=== PATIENT | male | born 1975 | race African-American/Black ===

== ENCOUNTER → 2017-03-10 | Outpatient (CLI) | payer OTHER ==
[~2017-03-10] MED LIST: OPTIRAY 320 IV PRN
--- NOTE | 2017-03-10 13:36 | DIAGNOSTIC IMAGING REPORT ---
CT ANGIO ABDOMEN WITH CONTRAST CT DOSE: 867.62 mGy.cm CLINICAL HISTORY: Refractory hypertension. TECHNIQUE: Helical images were acquired in the transverse plane. MIP imaging was performed. The patient was scanned in the arterial phase. COMPARISON STUDY: None. FINDINGS: The visualized portions lung bases reveal a slight mosaic attenuation pattern of the lung bases possibly secondary to air-trapping. No hepatic masses are visualized on this arterial phase study. The gallbladder appears normal. There is splenic masses are visualized. No pancreatic masses are visualized. There is mild left adrenal thickening. No renal masses are visualized this arterial phase study. There is a fat-containing umbilical hernia. There is no evidence of superior mesenteric artery stenosis. There is no evidence of celiac artery stenosis. There are single bilateral renal arteries. There is no evidence of renal artery stenosis. There is no evidence of aortic or proximal iliac artery stenosis. IMPRESSION: No evidence of renal, superior mesenteric, or celiac artery stenosis. Electronically signed by: Amado Dan M.D. 03/10/2017 1:34 PM Dictated Date/Time: 03/10/2017 1:31 PM
== END | disposition home or self-care (01) ==
LOC: C.CTS 12:55 → EDSEX 13:00
PROVIDERS: ATTEND Nurse Practitioner Family
DX: I10 Essential (primary) hypertension (principal)

== ENCOUNTER → 2017-06-05 | Outpatient (CLI) | payer OTHER ==
[~2017-06-05] VITALS: Ht 182.9 cm; Wt 133.9 kg
[2017-06-05 14:47] VITALS: BP 147/96; PULSE 81; Ht 182.9 cm; Wt 133.9 kg
== END | disposition home or self-care (01) ==
LOC: C.NEUR 14:10
PROVIDERS: ATTEND Internal Medicine Pulmonary Disease
DX: R53.83 Other fatigue (principal); I10 Essential (primary) hypertension; E66.9 Obesity, unspecified; G47.00 Insomnia, unspecified; G47.21 Circadian rhythm sleep disorder, delayed sleep phase type

== ENCOUNTER → 2017-06-16 | Outpatient (CLI) | payer OTHER ==
--- NOTE | 2017-06-21 12:03 | POLYSOMNOGRAPH REPORT ---
CLINICAL DATA: The patient is a 42-year-old male with a BMI of 40, referred with a history of hypertension, obesity, daytime fatigue, fragmented sleep, and loud snoring. On the evening of 06/16/2017, a home sleep apnea test was performed using [employer] type 3 monitor. RECORDING RESULTS: Total recording time was 8.9 hours. The patient's monitoring time and estimated sleep time was 6.5 hours. RESPIRATORY DATA: Mild sleep apnea was documented. The JOVANY was 14.9. There were 36 obstructive apneic episodes and 60 hypopneic episodes. The longest respiratory event was 58 seconds. OXIMETRY DATA: Transient nocturnal hypoxemia was seen. Oxygen zeinab was 83%. Mean saturation was 95%. Time below 89% was 2 minutes. HEART RATE DATA: Heart rates ranged from 59-72 beats per minute. SNORING DATA: Snoring was recorded throughout the night. IMPRESSION: Mild sleep apnea/hypopnea with an JOVANY of 14.9 with mild nocturnal hypoxemia. RECOMMENDATIONS: The patient may benefit from use of an oral appliance or a repeat sleep study with CPAP. Clinical correlation is needed.
== END | disposition home or self-care (01) ==
LOC: C.NEUR 10:10
PROVIDERS: ATTEND Internal Medicine Pulmonary Disease
DX: G47.21 Circadian rhythm sleep disorder, delayed sleep phase type (principal)

== ENCOUNTER 2018-04-03 10:08 | Emergency (ER) | payer OTHER ==
[~2018-04-03] VITALS: Ht 182.9 cm; Wt 141.2 kg
[2018-04-03 10:15] VITALS: TEMP 36.8; Ht 182.9 cm; Wt 141.2 kg
[2018-04-03] MEDS ORDERED: LISI-729 PO (10:32)
[2018-04-03] MEDS ORDERED: HYDR12.56 PO (10:32)
[2018-04-03] MEDS ORDERED: BLOOD PRESURE MED PO (10:32)
[2018-04-03] MEDS ORDERED: LISINOPRIL 20 MG TAB PO STA (10:43)
[2018-04-03] MEDS ORDERED: HYDROCHLOROTHIAZIDE 25 MG TAB PO STA (10:43)
[2018-04-03] MEDS ORDERED: AMLODIPINE BESYLATE 5 MG TAB PO ONE (10:45)
--- NOTE | 2018-04-03 10:49 | EMERGENCY ROOM VISIT NOTE ---
History Report prepared by Annalisa: Inocencio Arguelles Under the Supervision of: Dr. Festus Pike M.D. First contact with patient: 10:37 Chief Complaint: NOSE BLEED (MINOR) Stated Complaint: NOSE BLEED History of Present Illness The patient is a 43 year old male who presents to the Emergency Room with complaints of an intermittent nose bleed beginning 8.5 hours ago. The patient states his bleeding began at 0200 this morning, stopped, and then started again. He notes he thought blood was coming from both nostrils the first time and just the left nostril the second time. He reports he does not take aspirin or a blood thinner. The patient notes he does take lisinopril and hydrochlorothiazide. He states he did not take them this morning because he woke up and came straight to the ED. The patient denies fevers, chills, cough, congestion, nausea, vomiting, diarrhea, feeling blood dripping down his throat, and abdominal pain. Source of History: patient Onset: 8.5 hours ago Position: nose Quality: other (bleed) Timing: intermittent Associated Symptoms: No fevers, No chills, No cough, No nausea, No vomiting , No abdominal pain, No diarrhea Note: Denies: congestion Review of Systems See HPI for pertinent positives and negatives. A total of ten systems were reviewed and were otherwise negative. Past Medical & Surgical Medical Problems: (1) HTN (hypertension) Family History Patient reports no known family medical history. Social History Smoking Status: Never Smoker Marital Status: single Occupation Status: employed Current/Historical Medications Scheduled Hydrochlorothiazide (Hctz), Unknown Dose PO DAILY Lisinopril (Zestril), Unknown Dose PO DAILY [Blood Presure Med], 1 TAB PO DAILY Allergies Coded Allergies: No Known Allergies (Unverified , 04/03/18) Physical Exam Vital Signs Date Time Temp Pulse Resp B/P (MAP) Pulse Ox O2 Delivery O2 Flow Rate FiO2 04/03/18 12:50 81 18 205/149 97 04/03/18 12:22 205/149 04/03/18 12:01 81 18 201/148 97 Room Air 04/03/18 10:15 36.8 93 20 212/148 98 Room Air Physical Exam GENERAL: Awake, alert, well-appearing, in no distress HENT: Normocephalic, atraumatic. Oropharynx unremarkable. No blood in the oropharynx. Scant dry blood in the bilateral nares. No clear source. EYES: Normal conjunctiva. Sclera non-icteric. NECK: Supple. No nuchal rigidity. FROM. No JVD. RESPIRATORY: Clear to auscultation. CARDIAC: Regular rate, normal rhythm. Extremities warm and well perfused. Pulses equal. ABDOMEN: Soft, non-distended. No tenderness to palpation. No rebound or guarding. No masses. RECTAL: Deferred. MUSCULOSKELETAL: Chest examination reveals no tenderness. The back is symmetrical on inspection without obvious abnormality. There is no CVA tenderness to palpation. No joint edema. LOWER EXTREMITIES: Calves are equal size bilaterally and non-tender. No edema. No discoloration. NEURO: Normal sensorium. No sensory or motor deficits noted. SKIN: No rash or jaundice noted. Medical Decision & Procedures Medications Administered Medications (Trade) Dose Ordered Sig/Capri Route Start Time Stop Time Status Last Admin Dose Admin Lisinopril (Zestril Tab) 20 mg NOW STAT PO 04/03/18 10:43 04/03/18 10:51 DC 04/03/18 11:08 20 MG Hydrochlorothiazide (Hydrochlorothiazide Tab) 25 mg NOW STAT PO 04/03/18 10:43 04/03/18 10:51 DC 04/03/18 11:07 25 MG Amlodipine Besylate (Norvasc Tab) 10 mg NOW ONCE PO 04/03/18 10:45 04/03/18 10:51 DC 04/03/18 11:07 10 MG Oxymetazoline HCl (Afrin 0.05% Nasal [place]) 75 sprays [facility] ONCE .ROUTE 04/03/18 11:04 04/03/18 11:05 DC 04/03/18 11:08 75 SPRAYS ED Course 1040: The patient was evaluated in room B10. A complete history and physical exam was performed. 1144: I reevaluated the patient. His nose has not bled. He is feeling better. 1234: I reevaluated the patient. His blood pressure was still elevated, and he admitted to not taking his medication yesterday as well. Discussed results and discharge instructions: he verbalized understanding and agreement. The patient is ready for discharge. Medical Decision I reviewed the patient's past medical history, medications, and the nursing notes as described above. Differential diagnosis: Etiologies such as anterior epistaxis, coagulopathy, traumatic injury, fracture , septal hematoma, posterior epistaxis as well as other pathologies were entertained. The patient is a 43-year-old gentleman with a past medical history of hypertension who presents emergency department with epistaxis that began today per hpi. Denies LAGOS, dizziness, CP, SOB, n/v. On arrival with the patient's epistaxis is resolved without intervention. The patient was given Afrin and clamp and upon reevaluation continued to be resolved. Of note the patient did arrive hypertensive but reports that he did not take his medicine yesterday or this morning. He was given his home medications of hydrochlorothiazide, lisinopril, amlodipine. Patient continued to be asymptomatic with no further bleeding in the emergency department. Plan for PCP follow-up for further monitoring and management of his hypertension. Findings and plan for follow-up reviewed with patient. Patient agreeable and d/c'd per discharge instructions. Medication Reconcilliation Current Medication List: was personally reviewed by me Blood Pressure Screening Patient's blood pressure: Elevated blood pressure Blood pressure disposition: Referred to PCP Impression Primary Impression: Epistaxis Additional Impression: Hypertension Scribe Attestation The scribe's documentation has been prepared under my direction and personally reviewed by me in its entirety. I confirm that the note above accurately reflects all work, treatment, procedures, and medical decision making performed by me. Departure Information Dispostion Home / Self-Care Referrals Haylie Blake (PCP) Forms HOME CARE DOCUMENTATION FORM, IMPORTANT VISIT INFORMATION, WORK / SCHOOL INSTRUCTIONS Patient Instructions ED Nosebleed, High Blood Pressure, My [facility] Additional Instructions Please follow up with your primary care physician on Thursday for re-evaluation in to discuss improved control of your blood pressure. Your nosebleed resolved in the emergency department. Otherwise, your exam did not show signs of an emergent condition at this time. Make sure to take your blood pressures daily as prescribed. Apply Afrin for recurrent nosebleeds with direct pressure for approximately 30- 60 minutes. Return to the emergency department for worsening symptoms as described in the accompanying instructions. Problem Qualifiers
[2018-04-03] MEDS ORDERED: LISINOPRIL 5 MG TAB ONE (11:03)
[2018-04-03] MEDS ORDERED: OXYMETAZOLINE HCL 0.05% NA SPR 15 ML BTL ONE (11:04)
[2018-04-03 12:50] VITALS: BP 205/149; PULSE 81; O2SAT 97
== END 2018-04-03 12:51 | disposition home or self-care (01) ==
LOC: C.EDB 10:09
DX: R04.0 Epistaxis (principal); I10 Essential (primary) hypertension; Z79.899 Other long term (current) drug therapy

== ENCOUNTER → 2018-06-22 | Outpatient (CLI) | payer OTHER ==
[~2018-06-22] MED LIST changes: +BLOOD PRESURE MED PO; +HYDR12.56 PO; +LISI-729 PO; -OPTIRAY 320 IV PRN
--- NOTE | 2018-06-23 06:37 | PAP/PSG TECHNICIAN REPORT ---
[facility] Senior Functional Analyst Polysomnogram Report Study name: None Report date: 06/23/2018 Study date: 06/22/2018 Referring Physician: Tyron Ayala M.D. Name: EVERARDO PIERCE Interpreting Physician: Tyron Ayala M.D. Date of : 1975 Senior Functional Analyst: Nevin Mccartney RPSGT. Sex: Male Age: 43 Study Type: PSG PAP Weight: 295 lbs Height: 43 years, Height 6' 0" BMI: 40 Medications: ASCORBIC ACID 500 MG, ATORVASTATIN 40 MG, FERROUS SULFATE 325 MG, SILDENAFIL 100 MG Patient History 43 yr-old male here for a new CPAP treatment study. He was found to be positive for POLINA with an AHI of 14.9. His diagnostic home sleep study was on 06/16/17. He chose a Mirage FX Soft edge nasal mask size wide from [employer]. The test was started on room air and 4 CMH2O. ETCO2 testing was not utilized during this study. Room 3 Parameters Monitored NPSG: E1-M2, E2-M1, Fp1-M2, Fp2-M1, F3-M2, F4-M2, F4-M1, C3-M2, C4-M2, C4-M1, O1-M2, O2-M2, O2-M1, T3-M2, T4-M1, P3-M2, P4-M1, CHIN1, CHIN2, HR, EKG, Legs, PFLOW, SNOR, FLOW, CFLOW, Tidal Volume, THOR, ABDO, SpO2, PLTH, CPRESS, ETCO2 Wave, ETCO2, pH Sleep Architecture Sleep Stages Time at Lights Off 11:10:20 PM STAGES Time (min.) TST (%) Time at Lights On 5:29:50 AM Wake 129.0 -- Total Recording Time (TRT) 379.50 min. N1 31.5 13 Total Sleep Period (TSP) 365.0 min. N2 204.0 81 Total Sleep Time (TST) 250.5min. N3 0.0 0 Awake Time 129.0 min. REM 15.0 6 Wake after Sleep Onset 114.5 min. Sleep Efficiency (SE) 66 % Sleep Onset Latency (HAL) 14.5 min. Number of Stage 1 Shifts None Awakenings 18 Stage Changes 79 Number of REM periods 1 REM 15.0 6 REM Latency 265.0 min. NREM 235.5 94 Body Position Analysis Supine Right Left Side Prone Vertical Total Sleep Time (min.) 292.7 44.8 0.0 44.77 0.0 0.0 Total Sleep Time (%) 82% 18% 0% 18 0% N/A% Total Sleep Time REM (min.) 15.0 0.0 0.0 None 0.0 0.0 Total Sleep Time NREM (min.) 190.7 44.8 0.0 None 0.0 0.0 Intermittent Wake (min.) 87.0 42.0 0.0 None 0.0 0.0 Total Sleep Period (%) 78% None None None None None Arousals Myoclonus (PLM) * Events Count Index Events Count Index Spontaneous 57 14 Events Awake (PLMW) 179 83.3 Respiratory 6 1.4 Events Asleep w/ Arousal (PLMA) 17 4.1 PLM 17 4 Events Asleep w/o Arousal (PLMS) 99 23.7 Snoring 5 1 Total Asleep 116 27.8 Total 84 20 Total 295 47 Respiratory Analysis * CA OA MA CH H RERA Total Count 0 0 0 0 12 5 12 Index 0.0 0.0 0.0 0 2.9 1 4.1 Mean Duration 0.0 0.0 0.0 0.00 14.7 18.8 15.9 Longest Duration 0.0 0.0 0.0 0.00 0.0 21.3 21.3 Respiratory Event Summary Total Supine ~Supine Right Left Prone REM NREM Apneas Count 0 0 0 0 N/A N/A 0 0 Index 0.0 0 0 0.0 N/A N/A 0 0 Hypopneas (4% Desat) Count 12 12 0 0 N/A N/A 4 8 Index 2.9 3.5 0 0.0 N/A N/A 16.0 2.0 Apneas & All Hypopneas Count 12 12 0 0 N/A N/A 4 8 Index 2.9 3 0 0 N/A N/A 16.0 2.0 Respiratory Events (Facilities Operations Technician+All Hyp+RERA) Count 12 16 1 1 N/A N/A 4 8 Index 4.1 5 1 1.3 N/A N/A 24.0 2.8 Respiratory Related Arousal Count 6 16 1 1 N/A N/A 3 3 Index 1.4 1 1 1 N/A N/A 12 1 Snoring Analysis Supine Right Left Prone REM NREM Total Snore duration 12.0 min Snores count 681 110 N/A N/A 12 779 791 Snore mean duration 0.9 Sec Snores index 199 147 N/A N/A 48.0 198.5 189.5 TST with snoring (%) 4.8% Desaturation Event Summary: Minimum %SpO2 Event Count Mean/Min/Max Duration(sec.) Desaturation Index % Time In Bed > 90 20 31.5 / 8.3 / 60.0 9.8 33.0 86 - 90 15 28.9 / 8.3 / 60.0 4.0 60.1 81 - 85 0 N/A 0.0 6.8 76 - 80 0 N/A 0.0 0.1 71 - 75 0 N/A 0.0 0.0 66 - 70 0 N/A 0.0 0.0 61 - 65 0 N/A 0.0 0.0 56 - 60 0 N/A 0.0 0.0 51 - 55 0 N/A 0.0 0.0 < 50 0 N/A 0.0 0.0 Total REM NREM Awake <50% 0.0 min. 0.0 min. 0.0 min. 0.0 min. 51 - 60% 0.0 min. 0.0 min. 0.0 min. 0.0 min. 61 - 70% 0.0 min. 0.0 min. 0.0 min. 0.0 min. 71 - 80% 0.4 min. 0.4 min. 0.0 min. 0.0 min. 81 - 90% 247.5 min. 14.4 min. 184.2 min. 48.9 min. 91 - 100% 122.0 min. 0.2 min. 50.7 min. 71.1 min. Average 89 86 89 91 Minimum SpO2 79 79 83 83 Desaturation Event Index 4.4 16.0 3.8 4.2 # Desat. Events below 89% 19 4 8 7 Time(%) with Saturation below 89% 33.2 3.5 24.5 5.3 Time(min.) with Saturation below 89% 123.0 13.0 90.5 19.5 Time (mins) REM (mins) NREM (mins) % of TST SpO2 Below 90% 19 4 N15 57.3 SpO2 Below 88% 6 0 0 28 Heart Rate Analysis Min (bpm) Max (bpm) Average (bpm) Awake 78 196 91 NREM 43 106 85 REM 76 97 87 Overall 43 106 85 Supplemental O2 Values Minimum O2 level: None Value Start Time End Time Senior Functional Analyst Comments Mr. Pierce slept in the right and supine positions. Whenever he was supine; however, he slept leaning up against the headboard (except for the last part of the study when he did actually lie flat. No cardiac arrhythmias or PLMs noted. No bruxism noted. CPAP was initiated at +4 CMH2O and up-titrated to a level of +8 CMH2O, Cflex 2 which nearly eliminated all respiratory events and snoring. A Mirage FX Soft edge nasal mask size wide from [employer] was used during titration. He awoke to use the restroom five times during the night. He seemed to be apprehensive about the mask. He would sit up in bed several times and swing over to the side. He would then lay back down and get back to sleep. Upon further review, every time he would sit up he would urinate in whatever he found closest to him without ringing the call serrano (i.e. the trash can and a plastic cup). Once his actions were identified, a urinal was taken in for him. It was unclear whether or not he could not make it to the restroom in time. Mr. Pierce stated that he slept about the same as usual. The final report will be interpreted and signed by a sleep physician. The completed physician report will then be placed in the patient medical record. CPAP REPORT Therapy Detail Time / Page # Comment CPAP 4 cm H2O Full Face Mask Flex Pressure Relief Humidifier on 11:08:22 PM / pg. 270 CPAP 5 cm H2O Full Face Mask Flex Pressure Relief Humidifier on 2:07:01 AM / pg. 627 INCREASED FOR SNORING CPAP 6 cm H2O Full Face Mask Flex Pressure Relief Humidifier on 4:01:39 AM / pg. 856 INCREASED FOR HYPOPNEAS IN REM CPAP 8 cm H2O Full Face Mask Flex Pressure Relief Humidifier on 4:53:33 AM / pg. 960 INCREASED FOR LOUD SNORING AND HYPOPNEAS WHILE FINALLY FLAT AND SUPINE Therapy Event: Therapy (cm H20) 4 5 6 8 Total Time at Pressure (min.) 176.7 114.6 51.9 36.3 TST at Pressure (min.) 73.7 91.6 49.9 35.3 # Periods 1 1 1 1 Sleep Onset (min.) 14.5 0.0 0.0 0.0 REM Onset (min.) N/A 102.8 0.0 N/A Sleep Efficiency % 41 79 96 97 Wakefulness (%) 58.3 20.1 3.9 2.8 Wakefulness (min.) 103.0 23.0 2.0 1.0 NREM 1 (%) 10.8 7.4 7.7 0.0 NREM 1 (min.) 19.0 8.5 4.0 0.0 NREM 2 (%) 30.9 62.2 82.3 97.2 NREM 2 (min.) 54.7 71.3 42.7 35.3 NREM 3 (%) 0.0 0.0 0.0 0.0 NREM 3 (min.) 0.0 0.0 0.0 0.0 REM (%) 0.0 10.3 6.1 0.0 REM (min.) 0.0 11.8 3.2 0.0 # Arousals 42 33 6 3 Arousal Index 34.2 21.6 7.2 5.1 # Snore 27 109 77 578 Snore Index 22.0 71.4 92.6 983.0 AHI 0.0 2.6 2.4 10.2 AHI Supine 0.0 3.5 2.4 10.2 AHI Non-Supine 0.0 0.0 N/A N/A NREM AHI 0.0 0.8 1.3 10.2 REM AHI N/A 15.2 18.9 N/A RDI 1.6 4.6 2.4 10.2 # Obstructive 0 0 0 0 # Central Ap 0 0 0 0 # Mixed 0 0 0 0 # Hypopneas 0 4 2 6 RERAS 2 3 0 0 Total Respiratory Events 2 7 2 6 Time Below SpO2 89.00% (min.) 56.9 38.1 5.1 3.4 Mean NREM SpO2 (%) 87 89 90 90 Mean REM SpO2 (%) N/A 86 86 N/A Mean Sleep SpO2 (%) 87 89 90 90 Min NREM SpO2 (%) 83 86 84 87 Min REM SpO2 (%) N/A 79 82 N/A Position Supine (min.) 51.7 68.8 49.9 35.3 Position Non-supine (min.) 21.9 22.8 0.0 0.0 LM Index Sleep 54.6 28.2 6.0 1.7 LM Index NREM 54.6 28.6 2.6 1.7 LM Index REM N/A 25.4 56.6 N/A Mean Heart Rate (bpm) 84 84 86 87 Min Heart Rate (bpm) 77 43 80 82
--- NOTE | 2018-06-28 08:19 | POLYSOMNOGRAPH REPORT ---
CLINICAL DATA: A 43-year-old male with BMI of 40 referred by Perla Barnard and myself with a history of mild sleep apnea with an AHI of 14 with an JOVANY of 14.9 on a home sleep apnea test. He used a Mirage FX soft edge nasal mask size wide from [employer]. SLEEP ARCHITECTURE: Total sleep period was 365 minutes. Total sleep time was 250.5 minutes divided between 235.5 minutes of non-REM sleep and 15 minutes of REM sleep. Sleep latency was 14.5 minutes. REM latency was delayed at 265 minutes. Sleep efficiency was reduced at 66%. Wake after sleep onset was elevated at 114.5 minutes. Sleep consisted of stage N1 13%, stage N2 81%, and REM 6%. AROUSAL DATA: 84 arousals were recorded for an index of 20 per hour. PLM DATA: 116 limb movements during sleep were noted for an index of 27.8 per hour with arousal index of 4.1 per hour. RESPIRATORY DATA: The AHI was 2.9. There were 12 hypopneic episodes with a mean duration of 14.7 seconds. OXIMETRY DATA: Nocturnal hypoxemia was seen. Oxygen zeinab was 79% during REM. Mean saturation was 89%. Time below 88% was 6 minutes. EKG: Heart rates ranged from 43 to 106 beats per minute. No arrhythmias were noted. GATHERING MACHINE FEEDER'S COMMENTS: The patient slept in the right and supine positions. He was titrated up to 8 cm water pressure, C-Flex setting 2. He was very apprehensive about CPAP, would swing over the side of the bed and then lay back down and go back to sleep. He would get up and urinate into whatever he could find closest to him including the trash can and a plastic cup. At his final pressure setting, he slept for 35.3 minutes with an AHI of 10.2. At 6 cm water pressure, he slept for 49.9 minutes with an AHI of 2.4. IMPRESSION: Mild sleep apnea/hypopnea, improved on CPAP at 8 cm water pressure, C-Flex setting #2. RECOMMENDATIONS: The patient should be started on the above noted treatment regimen and seen back in followup within 90 days to document efficacy and compliance. [facility]ana
== END | disposition home or self-care (01) ==
LOC: C.NEUR 21:00
PROVIDERS: ATTEND Internal Medicine Pulmonary Disease
DX: G47.33 Obstructive sleep apnea (adult) (pediatric) (principal)